=== PATIENT | female | born 1955 | race Hispanic/Latino ===

== ENCOUNTER → 2023-02-06 | Outpatient (CLI) | payer MEDICARE ==
[~2023-02-06] MED LIST: REGADENOSON 0.4 MG/5 ML PF SYG IVP SCH
== END | disposition home or self-care (01) ==
LOC: RAH 09:00
PROVIDERS: ATTEND Internal Medicine Interventional Cardiology
DX: R06.09 Other forms of dyspnea (principal)
CPT/HCPCS: 78452; 96374; 93017; J2785; A9500 ×2